=== PATIENT | male | born 1950 | race Caucasian/White ===

== ENCOUNTER → 2017-05-25 | Outpatient (CLI) | payer OTHER | LOC: BHFA 14:00 | PROVIDERS: ATTEND Internal Medicine | DX: R55 Syncope and collapse (principal) ==

== ENCOUNTER → 2017-05-25 | Outpatient (CLI) | payer OTHER | LOC: BHFA 13:15 | PROVIDERS: ATTEND Internal Medicine | DX: R55 Syncope and collapse (principal) ==

== ENCOUNTER → 2017-06-02 | Outpatient (CLI) | payer OTHER | LOC: FIMAGING 12:52 | PROVIDERS: ATTEND Family Medicine | DX: R55 Syncope and collapse (principal) ==

== ENCOUNTER → 2017-07-09 | Outpatient (CLI) | payer OTHER | LOC: BHFA 13:00 | PROVIDERS: ATTEND Internal Medicine Interventional Cardiology | DX: R55 Syncope and collapse (principal); I44.7 Left bundle-branch block, unspecified; E78.5 Hyperlipidemia, unspecified | CPT/HCPCS: 78452; 93017; 93225; 93226; A9500; J2785 ==

== ENCOUNTER 2017-07-20 09:11 | Observation (INO) | payer OTHER ==
[~2017-07-20 09:11] MED LIST: BACITRACIN IRRIGATION/NS 50,000 UNITS/1,000 ML BTL IRR ONE; DIAZEPAM 5 MG TAB PO ONE; NS 1,000 ML IV ONE; diphenhydrAMINE 25 MG CAP PO ONE
[2017-07-20] MEDS ORDERED: DIAZEPAM 5 MG TAB PO ONE (09:16)
[2017-07-20] MEDS ORDERED: ceFAZolin 2 GM/DEXTROSE 100 ML IV ONE (09:16)
--- NOTE | 2017-07-20 09:43 | CPEKG ---
Heart Rate: 60 RR Interval: 1000 P-R Interval: 172 QRSD Interval: 134 QT Interval: 472 QTC Interval: 472 P [place]: 55 QRS [place]: 4 T Wave [place]: 80 EKG Severity - ABNORMAL ECG - EKG Impression: SINUS RHYTHM EKG Impression: LEFT BUNDLE BRANCH BLOCK Electronically Signed By: Rajeev Bass 20-Jul-2017 10:42:57
[2017-07-20 09:44] LABS: % IMMATURE GRANULYOCYTES 0.2 % (0.0-1.1); ABSOLUTE IMMATURE GRANULOCYTES 0.01 10^3/uL (0.00-0.10); ADD DIFF? NO; ADD MORPH? NO; ADD SCAN? NO; ATYPICAL LYMPHOCYTE FLAG 0 (0-99); FRAGMENT RBC FLAG 0 (0-99); HEMATOCRIT 44.2 % (40.0-51.0); HEMOGLOBIN 15.4 g/dL (13.7-17.5); LEFT SHIFT FLG 0 (0-99); LIPEMIA HEMOLYSIS FLAG 90 (0-99); MEAN CELL HEMOGLOBIN 30.9 pg (27.9-34.1); MEAN CELL HEMOGLOBIN CONCENTR. 34.8 g/dL (32.4-36.7); MEAN CELL VOLUME 88.6 fL (81.5-99.8); MEAN PLATELET VOLUME 9.9 fL (8.7-11.7); PLATELET CLUMPS FLAG 0 (0-99); PLATELET COUNT 201 10^3/uL (150-400); RED BLOOD CELL COUNT 4.99 10^6/uL (4.40-6.38); RED CELL DISTRIBUTION WIDTH 13.2 % (11.5-15.2)
[2017-07-20 09:52] LABS: INR 0.96 (0.83-1.16); PROTIME(PATIENT) 12.7 SEC (12.0-15.0)
[2017-07-20 10:09] LABS: ANION GAP 11 mEq/L (8-16); CALCIUM 9.7 mg/dL (8.5-10.4); CARBON DIOXIDE 24 mEq/l (22-31); CHLORIDE 103 mEq/L (97-110); CREATININE 1.4 mg/dL (0.7-1.3); GLOMERULAR FILTRATION RATE 50; GLUCOSE 90 mg/dL (70-100); POTASSIUM 4.2 mEq/L (3.5-5.2); SODIUM 138 mEq/L (134-144)
--- NOTE | 2017-07-20 11:37 | PDPROPOC ---
Sedation Plan of Care Sedation Plan of Care: vital signs stable ASA Classification: ASA 2 Planned drugs: fentanyl, midazolam Mallampati Score: Class 1 Mallampati Reference Image: Patient passed 3-3-2 rule?: Yes
--- NOTE | 2017-07-20 11:38 | PDHPUP ---
History & Physical Update H&P update statement: This history and physical update is based on an assessment of the patient which was completed after admission or registration (within 24 hours), but prior to the surgery/procedure. H&P update: H&P reviewed & patient examined, no change in patient's condition since H&P completed
[2017-07-20] MEDS ORDERED: MIDAZOLAM 2 MG/2 ML VIAL ONE (11:47)
[2017-07-20] MEDS ORDERED: fentaNYL 100 MCG/2 ML INJ ONE ×2 (11:47→12:21)
[2017-07-20] MEDS ORDERED: LIDOCAINE 1% 300 MG/30 ML SDV ONE (11:47)
[2017-07-20] MEDS ORDERED: BUPIVACAINE 0.5% 30 ML SDV ONE (11:47)
[2017-07-20] MEDS ORDERED: IOPAMIDOL (ISOVUE-300) 100 ML BTL ONE (12:30)
--- NOTE | 2017-07-20 13:36 | CPEKG ---
Heart Rate: 60 RR Interval: 1000 P-R Interval: 184 QRSD Interval: 136 QT Interval: 476 QTC Interval: 476 P [place]: 59 QRS [place]: 12 T Wave [place]: 65 EKG Severity - ABNORMAL ECG - EKG Impression: SINUS RHYTHM EKG Impression: LEFT BUNDLE BRANCH BLOCK Electronically Signed By: Rajeev Bass 20-Jul-2017 13:52:33
[2017-07-20] MEDS ORDERED: OXYCODONE/APAP 5/325 TAB PO PRN (14:30)
[2017-07-20] MEDS: ACETAMINOPHEN 325 MG TAB PO PRN ×2 (15:11→21:00)
--- NOTE | 2017-07-20 15:13 | ASMTCMCOM ---
CM Note CM Note Notes: 07/20/2017 Case Management Note: Reviewed chart, pt admitted for cardiac procedure. No case management d/c needs identified d/t pt age, marital status and lack of PT/OT evals during admission. Case Management d/c poc: Home Independent w/follow up as directed by MD when medically stable. Case Management available if needs change. Date Signed: 07/20/2017 03:12 PM Electronically Signed By:Kath Zapien RN
--- NOTE | 2017-07-20 20:56 | CPIP ---
[f rep st] INVASIVE CARDIAC PROCEDURE DATE OF PROCEDURE: 07/20/2017 INDICATIONS: The patient is a pleasant 67-year-old male seen as an outpatient by Dr. Oliver Christensen. Jenelle friedman has a history of a known left bundle branch block with 2 episodes of presyncope. Recent Holter mon itor has indicated 2 episodes of transient complete heart block. PROCEDURE: Implantation of a dual-chamber pacemaker. TECHNIQUE: Following informed consent and in the fasting state, the patient was brought to cardiac c atheterization laboratory. Immediately prior to the procedure, prophylactic antibiotics were adminis tered. The left chest was prepped and draped in the usual sterile fashion. A mixture of lidocaine a nd bupivacaine was infiltrated below the left clavicle. A 3 cm incision was made with a #10 blade, w hich was carried down to the prepectoral fascia and the pacemaker pocket was formed. An antibiotic-s oaked sponge was then placed in the pocket. Using 2 separate sticks in the modified Seldinger techni que, access was gained to the axillary vein at the level of the first rib. Two individual 6-Kiswahili s heaths were then placed. This allowed positioning of the right ventricular lead in the right ventric ular apex and the right atrial lead in the right atrial appendage. The leads were screwed into place , sheath torn away and the lead secured to the pacemaker pocket floor using 0 Ethibond. At this poin t, the antibiotic-soaked sponge was removed from the pocket. The pocket was inspected and all bleede rs were cauterized. The pocket was irrigated with antibiotic-containing solution and the device was then brought to the field. Both leads were identified by serial number and affixed to the header acc ording to otr hazmat company driver guidelines. The device was then placed in the pocket. The pocket was then cl osed in 3 layers using 2 layers of interrupted suture with 2-0 and 3-0 Vicryl and finally running 3-0 Stratafix for the skin. Steri-Strips and a dry dressing were applied. COMPLICATIONS: None. DEVICE INFORMATION: The pacemaker is a Biotronik Edora 8 DR-T, model number 323900, serial number [id number]. The atrial lead is a Biotronik Solia S45, model number 496448, serial number [id number]. The ventricular lead is a Biotronik Solia S53, model number 481389, serial number [id number]. Capture in t he atrium was 0.6 V, 0.4 milliseconds, sensed P waves 3.4 mV and impedance of 507 ohms. In the ventr icle, capture was 0.6 V, 0.4 milliseconds, with sensed R waves 10.2 mV, lead impedance 585 ohms. DISPOSITION: Patient will be recovered in the CVC. He will be monitored overnight and discharged ho co in the morning. /[id number]/MODL
[2017-07-21 03:58] VITALS: RESP 16
[2017-07-21] MEDS: ACETAMINOPHEN 325 MG TAB PO PRN ×2 (04:45→11:51)
[2017-07-21 05:39] LABS: % IMMATURE GRANULYOCYTES 0.3 % (0.0-1.1); ABSOLUTE IMMATURE GRANULOCYTES 0.02 10^3/uL (0.00-0.10); ADD DIFF? NO; ADD MORPH? NO; ADD SCAN? NO; ATYPICAL LYMPHOCYTE FLAG 0 (0-99); FRAGMENT RBC FLAG 0 (0-99); HEMATOCRIT 43.1 % (40.0-51.0); HEMOGLOBIN 14.7 g/dL (13.7-17.5); LEFT SHIFT FLG 0 (0-99); LIPEMIA HEMOLYSIS FLAG 90 (0-99); MEAN CELL HEMOGLOBIN 30.4 pg (27.9-34.1); MEAN CELL HEMOGLOBIN CONCENTR. 34.1 g/dL (32.4-36.7); MEAN CELL VOLUME 89.2 fL (81.5-99.8); MEAN PLATELET VOLUME 10.5 fL (8.7-11.7); PLATELET CLUMPS FLAG 0 (0-99); PLATELET COUNT 198 10^3/uL (150-400); RED BLOOD CELL COUNT 4.83 10^6/uL (4.40-6.38); RED CELL DISTRIBUTION WIDTH 13.2 % (11.5-15.2)
[2017-07-21 05:45] LABS: ANION GAP 9 mEq/L (8-16); CALCIUM 9.5 mg/dL (8.5-10.4); CARBON DIOXIDE 25 mEq/l (22-31); CHLORIDE 103 mEq/L (97-110); CREATININE 1.2 mg/dL (0.7-1.3); GLOMERULAR FILTRATION RATE > 60; GLUCOSE 91 mg/dL (70-100); POTASSIUM 4.6 mEq/L (3.5-5.2); SODIUM 137 mEq/L (134-144)
[2017-07-21 08:15] VITALS: BP 145/96; PULSE 73; TEMP 97.6; O2SAT 93
--- NOTE | 2017-07-21 08:36 | CPEKG ---
Heart Rate: 61 RR Interval: 984 P-R Interval: 160 QRSD Interval: 136 QT Interval: 460 QTC Interval: 464 P [place]: 30 QRS [place]: 6 T Wave [place]: 102 EKG Severity - ABNORMAL ECG - EKG Impression: SINUS RHYTHM EKG Impression: LEFT BUNDLE BRANCH BLOCK Electronically Signed By: Rajeev Bass 21-Jul-2017 11:21:05
[2017-07-21] MEDS ORDERED: VITAMIN B COMPLEX 1 EA CAP/TAB PO SCH (09:00)
[2017-07-21] MEDS ORDERED: ALLOPURINOL 300 MG TAB PO SCH (09:00)
--- NOTE | 2017-07-21 12:06 | ASDISCHSUM ---
Discharge Information Plan Status:Home with No Needs Medically Cleared to Leave:07/21/2017 Discharge Date:07/21/2017 12:03 PM CM D/C Disposition:Home, Routine, Self-Care ADT D/C Disposition:Home, Routine, Self-Care Projected Discharge Date:07/21/2017 12:00 AM Transportation at D/C:Family Discharge Delay Reason: Follow-Up Date:07/21/2017 12:00 AM Discharge Slot: Final Diagnosis: Placement Information Patient Contact Information Contact Name:TIMOTHY Relationship: Address:[address] City:[place] Alternate Phone: State/Zip Code:[place] [address] Email: Financial Information Financial Class: Primary Plan Desc:MEDICARE OUTPATIENT Primary Plan Number:[id number] Secondary Plan Desc:[facility] Secondary Plan Number:[id number] Assessment Information [facility] CM Progress Note CM Note CM Note Notes: 07/20/2017 Case Management Note: Reviewed chart, pt admitted for cardiac procedure. No case management d/c needs identified d/t pt age, marital status and lack of PT/OT evals during admission. Case Management d/c poc: Home Independent w/follow up as directed by MD when medically stable. Case Management available if needs change. Date Signed: 07/20/2017 03:12 PM Electronically Signed By:Kath Zapien RN Intervention Information Intervention Type:*DANIELA-Signed Date of Service:07/21/2017 09:21 AM Patient Type:Observation Staff Member:Kenia Hawley Hours: Discipline: Severity: Comment:
--- NOTE | 2017-07-21 17:41 | GDS ---
[f rep st] DISCHARGE SUMMARY ADMIT DIAGNOSES: 1. Complete heart block. 2. Planned placement of permanent pacemaker. 3. Abnormal EKG. DISCHARGE DIAGNOSES: 1. Status post placement of permanent pacemaker with no complications. 2. Complete heart block. 3. Abnormal EKG with right bundle branch block. HOSPITAL COURSE: This gentle this gentleman was seen by Dr. Oliver Christensen in clinic. He has a known l eft bundle branch block. He has had 2 presyncopal episodes. He wore a Holter monitor that indicated 2 episodes of transient complete heart block. It was recommended that he have a dual-chamber pacema ker placed. He was in agreement with this plan. He was admitted to the hospital on 07/20/2017 for p lacement of permanent pacemaker. He was taken to the cath lab tech by Dr. Glenn Johnston, who placed a Biot ronik [place] pacemaker with no complications. He was then taken to PCU for overnight observation, wh ere he has done well. His pacemaker was checked this morning and functioning appropriately. At this time, he has no complaints. He has been up ambulating with no problems. At this time, he feels dayanna dy for discharge. MEDICATIONS: He will go home on allopurinol 300 mg daily, vitamin B complex 1 daily, Tylenol 325 mg to 650 mg every 6 hours as needed for pain, not to exceed 3 g daily. ALLERGIES: He has no known allergies. EXAM: VITAL SIGNS: On day of discharge, his blood pressure was 145/91, heart rate 73 and regular, o xygen saturation on room air 93%, temperature 36.4 Celsius. EKG on 07/21/2017 shows a normal sinus r hythm with a rate of 73. HEART: Rate regular. No murmurs, rubs, gallops. LUNGS: Sounds are clear to auscultation. No wheezes, rales, or rhonchi. SKIN: Left pectoral site is well approximated with Steri-Strips in place. Pressure dressing remains in place with no bleeding, induration or tendernes s. No hematoma noted. He has taken Tylenol which does provide relief. EXTREMITIES: No peripheral edema. NEUROLOGIC: He has been up ambulating with no syncopal or near syncopal episodes. PACEMAKER PLACEMENT: On 07/20/2017, by Dr. Glenn Johnston. DEVICE INFORMATION: Pacemaker is a Biotronik [place] AVR-T, model #[id number], serial #[id number]. DISCHARGE PLAN: 1. He will be discharged home on current medications. 2. He has a followup in clinic in 1 week for a pacemaker check and wound care check. He will follow up with Dr. Christensen in 4 weeks. This appointment has been made previous to discharge. Left arm pacemaker restrictions were reviewed with him and written information given. 1. No lifting, pushing, pulling greater than 10 pounds for 7 days. 2. Keep dressing in place over wound until wound check in 1 week. Cover dressing with plastic taped for shower. 3. Okay to walk 1 block and back 1st few days. 4. Follow pacer check and wound check in 1 week at the clinic. Appointments were made. 5. Follow up with Dr. Christensen in 1 month. Appointments have been previously made. Call Will Hear t should you have any questions or concerns. At this time, he currently is stable for discharge. /[id number]/MODL
== END 2017-07-21 12:03 | disposition home or self-care (01) ==
LOC: FCATH 09:11 → UNDOADMOB 13:05 → F2W 13:05
PROVIDERS: ADMIT Internal Medicine Cardiovascular Disease; ATTEND Internal Medicine Cardiovascular Disease
PROC: 02HK3JZ Insertion of Pacemaker Lead into Right Ventricle, Percutaneous Approach (ICD-10-PCS; principal; 2017-07-20)
PROC: 0JH606Z Insertion of Pacemaker, Dual Chamber into Chest Subcutaneous Tissue and Fascia, Open Approach (ICD-10-PCS; principal; 2017-07-20)
PROC: 02H63JZ Insertion of Pacemaker Lead into Right Atrium, Percutaneous Approach (ICD-10-PCS; principal; 2017-07-20)
DX: I44.2 Atrioventricular block, complete (principal); I45.10 Unspecified right bundle-branch block; E78.5 Hyperlipidemia, unspecified; E03.9 Hypothyroidism, unspecified
CPT/HCPCS: 33208; 71010; 71020; 93005; C1785; C1898; J0690; J2250; J3010; Q9967